=== PATIENT | female | born 2000 | race Caucasian/White ===

== ENCOUNTER → 2025-01-06 12:13 | Outpatient (CLI) | payer OTHER, SELFPAY ==
--- NOTE | 2025-01-06 12:16 | DI.RAD.S_ITS ---
PROCEDURE: XR FINGER LT MIN 2V INDICATIONS: Hit tip of finger 2 weeks ago, continued pain TECHNIQUE: AP hand, 2 views of the left 5th finger (s) acquired. COMPARISON: None. FINDINGS: Bones: Small avulsion fracture of the dorsal base of the 5th distal phalanx . The fragment is displaced 1 cm into the dorsal soft tissues. Joints: Mild 1st CMC and 1st MCP degenerative change appreciated Soft tissues: No soft tissue abnormality. IMPRESSION: Displaced avulsion fracture through the dorsal base of the 5th distal phalanx. This represents the insertion site of the extensor tendon and suspect this is now dysfunctional. Please correlate with the extension function of the 5th DIP Dictated by: Koffi Allen M.D. on 01/07/2025 at 10:05 Approved by: Koffi Allen M.D. on 01/07/2025 at 10:07
== END ==
PROVIDERS: PCP Nurse Practitioner; Referring Provider Nurse Practitioner; Visit Provider Nurse Practitioner Family
DX: S69.90XA Unspecified injury of unspecified wrist, hand and finger(s), initial encounter (principal); S62.637A Displaced fracture of distal phalanx of left little finger, initial encounter for closed fracture
CPT/HCPCS: 73140